=== PATIENT | female | born 1965 | race Caucasian/White ===

== ENCOUNTER 2018-05-15 06:05 | Day surgery (SDC) | payer OTHER ==
[~2018-05-15] VITALS: Ht 147.3 cm; Wt 91.8 kg
[2018-05-15] MEDS ORDERED: LIDOCAINE 2% 30 ML JELLY TP ONE (06:06)
[2018-05-15] MEDS ORDERED: BENZOCAINE 20% 50 MCG/SPRAY 57 GM TP ONE (06:06)
[2018-05-15] MEDS ORDERED: LIDOCAINE 4% 50 ML SOLUTION TP ONE (06:06)
[2018-05-15] MEDS ORDERED: SODIUM CHLORIDE 0.9% 1,000 ML IV ONE ×2 (06:26→06:30)
[2018-05-15] MEDS ORDERED: CARV12 PO (06:42)
[2018-05-15] MEDS ORDERED: RANI150T7 PO (06:42)
[2018-05-15] MEDS ORDERED: OXYB5 PO (06:42)
[2018-05-15] MEDS ORDERED: ACET1TAB12 PO (06:42)
[2018-05-15] MEDS ORDERED: IBUP-2070 PO (06:42)
[2018-05-15] MEDS ORDERED: VITA400T9 PO (06:42)
[2018-05-15] MEDS ORDERED: LISI-662 PO (06:42)
[2018-05-15] MEDS ORDERED: MULT1CAP32 PO (06:42)
[2018-05-15] MEDS ORDERED: CYCL10 PO (06:42)
[2018-05-15] MEDS ORDERED: MONT10TA21 PO (06:42)
[2018-05-15] MEDS ORDERED: ASPI-1182 PO (06:42)
[2018-05-15] MEDS ORDERED: VITAD1000 PO (06:42)
[2018-05-15] MEDS ORDERED: FentaNYL CITRATE-PF 100 MCG/2 ML VIAL ONE (08:04)
[2018-05-15] MEDS ORDERED: MIDAZOLAM HCL 2 MG/2 ML VIAL ONE (08:04)
[2018-05-15] MEDS ORDERED: MethylPREDNISolone SOD SUCC 125 MG/2 ML VIAL IVP ONE (08:30)
[2018-05-15] MEDS ORDERED: OXYGEN THERAPY IH SCH (20:00)
== END 2018-05-15 10:00 | disposition left against medical advice (07) ==
LOC: SURGERY 06:05
PROVIDERS: ATTEND Internal Medicine Critical Care Medicine
DX: J38.4 Edema of larynx (principal); B37.0 Candidal stomatitis; J84.111 Idiopathic interstitial pneumonia, not otherwise specified; J98.09 Other diseases of bronchus, not elsewhere classified; J98.8 Other specified respiratory disorders; J44.9 Chronic obstructive pulmonary disease, unspecified; I11.0 Hypertensive heart disease with heart failure; I50.9 Heart failure, unspecified; F17.210 Nicotine dependence, cigarettes, uncomplicated; G47.33 Obstructive sleep apnea (adult) (pediatric); Z79.82 Long term (current) use of aspirin; Z79.01 Long term (current) use of anticoagulants; Z79.891 Long term (current) use of opiate analgesic; Z99.81 Dependence on supplemental oxygen; Z79.1 Long term (current) use of non-steroidal anti-inflammatories (NSAID); Z79.899 Other long term (current) drug therapy; Z98.890 Other specified postprocedural states
CPT/HCPCS: 31623; 31624; 71045; 87015; 87070; 87205; 87206; 87220; 88108; 88312; J2250; J2930; J3010; J7030

== ENCOUNTER 2020-09-24 06:07 | Day surgery (SDC) | payer MEDICARE, OTHER ==
[2020-09-23 16:23] LABS: COVID AG,FIA SOURCE NASOPHARYNGEAL
[~2020-09-24] VITALS: Ht 142.2 cm; Wt 95.5 kg
[~2020-09-24 06:07] MED LIST: ACET-2080 PO; ASPI-1444 PO; CARV12 PO; CHOL100018 PO; CYCL10 PO; IBUP-2070 PO; LISI-894 PO; MONT-35 PO; MULT1CAP32 PO; OXYB5 PO; RANI150T7 PO; VITA400T9 PO
[2020-09-24] MEDS ORDERED: LIDOCAINE 2% 30 ML JELLY TP ONE ×2 (06:08)
[2020-09-24] MEDS ORDERED: BENZOCAINE 20% 50 MCG/SPRAY 57 GM TP ONE (06:08)
[2020-09-24] MEDS ORDERED: LIDOCAINE 4% 50 ML SOLUTION TP ONE (06:08)
[2020-09-24] MEDS ORDERED: ALBUTEROL SULFATE 2.5 MG/0.5 ML NEB SOLUTION NEB ONE (06:08)
[2020-09-24] MEDS ORDERED: SODIUM CHLORIDE 0.9% 1,000 ML ONE (06:12)
[2020-09-24] MEDS ORDERED: SODIUM CHLORIDE 0.9% 1,000 ML IV ONE (06:30)
[2020-09-24] MEDS ORDERED: MIDAZOLAM HCL 2 MG/2 ML VIAL ONE (07:47)
[2020-09-24] MEDS ORDERED: FentaNYL CITRATE PF 100 MCG/2 ML VIAL ONE (07:48)
[2020-09-24] MEDS ORDERED: MethylPREDNISolone SOD SUCC 125 MG/2 ML VIAL IVP ONE (09:00)
[2020-09-24] MEDS ORDERED: MethylPREDNISolone SOD SUCC 125 MG/2 ML VIAL ONE (09:10)
[2020-09-24] MEDS ORDERED: OXYGEN THERAPY IH SCH (20:00)
== END 2020-09-24 10:10 | disposition home or self-care (01) ==
LOC: SURGERY 06:07
PROVIDERS: ATTEND Internal Medicine Critical Care Medicine
DX: R05 Cough (principal); R04.2 Hemoptysis; R91.1 Solitary pulmonary nodule; J34.89 Other specified disorders of nose and nasal sinuses; J98.8 Other specified respiratory disorders; J38.4 Edema of larynx; B37.0 Candidal stomatitis; I10 Essential (primary) hypertension; G47.33 Obstructive sleep apnea (adult) (pediatric); J44.9 Chronic obstructive pulmonary disease, unspecified; Z87.891 Personal history of nicotine dependence; Z79.899 Other long term (current) drug therapy; Z20.822 Contact with and (suspected) exposure to COVID-19
CPT/HCPCS: 31623; 31624; 71045; 87015; 87070; 87101; 87205; 87206; 87220; 87426; 88184; 88185; C9803; J2250; J2930; J3010; J7030; J7613; Z7610

== ENCOUNTER 2021-08-19 06:06 | Day surgery (SDC) | payer MEDICARE, OTHER ==
[~2021-08-19] VITALS: Ht 142.2 cm; Wt 100.0 kg
[~2021-08-19 06:06] MED LIST changes: -CYCL10 PO; +CYCL10TA17 PO; -OXYB5 PO; +OXYB5TAB20 PO
[2021-08-19] MEDS ORDERED: SODIUM CHLORIDE 0.9% 1,000 ML IV ONE (06:30)
[2021-08-19] MEDS ORDERED: SODIUM CHLORIDE 0.9% 1,000 ML ONE (06:53)
[2021-08-19 06:55] LABS: COVID AG,FIA SOURCE NASOPHARYNGEAL
[2021-08-19] MEDS ORDERED: FentaNYL CITRATE PF 100 MCG/2 ML VIAL ONE (07:32)
[2021-08-19] MEDS ORDERED: MIDAZOLAM HCL 5 MG/ML VIAL ONE (07:33)
[2021-08-19] MEDS ORDERED: MethylPREDNISolone SOD SUCC 125 MG/2 ML VIAL IVP ONE (09:30)
[2021-08-19] MEDS ORDERED: MethylPREDNISolone SOD SUCC 125 MG/2 ML VIAL ONE (09:59)
[2021-08-19] MEDS ORDERED: OXYGEN THERAPY IH SCH (20:00)
== END 2021-08-19 11:50 | disposition home or self-care (01) ==
LOC: SURGERY 06:06
PROVIDERS: ATTEND Internal Medicine Critical Care Medicine
DX: R05.3 Chronic cough (principal); R06.2 Wheezing; R49.0 Dysphonia; R04.2 Hemoptysis; R91.1 Solitary pulmonary nodule; J44.9 Chronic obstructive pulmonary disease, unspecified; Z79.82 Long term (current) use of aspirin; Z79.899 Other long term (current) drug therapy
CPT/HCPCS: 31623; 31624; 71045; 87015; 87070; 87101; 87206; 87220; 87426; 88112; 88184; 88185; 88312; C9803; J2250; J2930; J3010; J7030